=== PATIENT | male | born 1950 | race Caucasian/White ===

== ENCOUNTER 2022-11-07 02:18 | Emergency (ER) | payer MEDICARE, SELFPAY ==
[2022-11-07 02:20] VITALS: BP 164/104; PULSE 102; RESP 20; TEMP 36.8; O2SAT 97
--- NOTE | 2022-11-07 02:24 | PC.NURSE ---
Wound to right lower leg cauterized by Dr. Ortiz using silver nitrate stick.
--- NOTE | 2022-11-07 02:30 | ED.GENADULT ---
HPI - General Adult General Chief complaint: Skin/Abscess/Foreign Body Stated complaint: RLE WOUND Time Seen by Provider: 11/07/22 02:30 History of Present Illness HPI narrative: This is a 72-year-old male presenting ED with chief complaint of bleeding. Patient has a scrape on his right anterior kennedy that occurred several days ago. It had been healing well until today when he scratched it and there was a small squirt of blood. He was on and unable to control the bleeding at home and eventually called EMS to be brought to the hospital. His sister did put some sort of clotting medicine on the wound. Patient says that he feels well. He has not have chest pain, shortness of breath, dizziness. He does not take any blood thinners. Related Data Allergies Allergy/AdvReac Type Severity Reaction Status Date / Time No Known Allergies Allergy Verified 11/07/22 02:35 [facility] Past Medical History Medical History Healthy male adult Social History Social History (Updated 11/07/22 @ 02:32 by Calvin Ortiz MD) Social History: Patient smokes pack cigarettes every 2 days, drinks twice a week Exam Narrative: APPEARANCE: No apparent distress. Head: atraumatic. EYES: EOMI, NOSE: Atraumatic NECK: Trachea midline RESPIRATORY: No increased rate of breathing CARDIOVASCULAR: RRR, ABDOMINAL: Non-distended MUSCULOSKELETAl: No obvious deformities NEURO: Alert. Moving 4/4 extremities SKIN:: patient has a small abrasion over the anterior kennedy on his right leg. There is a healing scab there. No active bleeding at this time. PSYCHIATRIC: Normal affect Course Vital Signs Vital signs: Vital Signs Temperature 98.2 F 11/07/22 02:20 Pulse Rate 102 H 11/07/22 02:20 Respiratory Rate 20 11/07/22 02:20 Blood Pressure 164/104 H 11/07/22 02:20 Pulse Oximetry 97 11/07/22 02:20 Oxygen Delivery Room Air 11/07/22 02:20 Temperature 98.2 F 11/07/22 02:20 Pulse Rate 102 H 11/07/22 02:20 Respiratory Rate 20 11/07/22 02:20 Blood Pressure 164/104 H 11/07/22 02:20 Pulse Oximetry 97 11/07/22 02:20 Oxygen Delivery Room Air 11/07/22 02:20 Medical Decision Making MDM Narrative Medical decision making narrative: -Presentation: 72-year-old male with bleeding from a kennedy wound -DDX includes but is not limited to: arteriole bleeding, venous bleeding -Co-morbidities complicating care: Patient does not have a primary care physician has not seen 1 in years, daily smoker -Social determinants of health: patient lives with his sister, 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 Before he arrived it was squirting but when he arrived to the ED it was oozing. Silver nitrate was used to cauterize the wound. Patient was given instructions if bleeding is to recur. patient has been instructed to follow up with primary care physician. -RX Vital Signs Vital Signs: Vital Signs Temperature 98.2 F 11/07/22 02:20 Pulse Rate 102 H 11/07/22 02:20 Respiratory Rate 20 11/07/22 02:20 Blood Pressure 164/104 H 11/07/22 02:20 Pulse Oximetry 97 11/07/22 02:20 Oxygen Delivery Room Air 11/07/22 02:20 Temperature 98.2 F 11/07/22 02:20 Pulse Rate 102 H 11/07/22 02:20 Respiratory Rate 20 11/07/22 02:20 Blood Pressure 164/104 H 11/07/22 02:20 Pulse Oximetry 97 11/07/22 02:20 Oxygen Delivery Room Air 11/07/22 02:20 Discharge Plan Discharge Clinical Impression: Visit for wound check Patient Disposition: Home, Self-Care Condition: Stable Instructions: Antibiotic Form, Acute Wounds (D
[2022-11-07 02:35] VITALS: BP 142/80; PULSE 89
[2022-11-07] MEDS: TETANUS,DIPHTHERIA,AC PERTUSSIS ADULT (0.5 ML) BOOSTRIX IM (02:36)
[2022-11-07 02:50] VITALS: BP 140/80; PULSE 90; RESP 18; O2SAT 100
== END 2022-11-07 02:57 | disposition home or self-care (01) ==
LOC: ANHED 02:52
PROVIDERS: Emergency Provider Emergency Medicine; PCP Family Medicine
DX: Z48.00 Encounter for change or removal of nonsurgical wound dressing (principal); Z23 Encounter for immunization
CPT/HCPCS: 90471; 90715; 99282